=== PATIENT | female | born 1955 | race American Indian/Alaskan Native ===

== ENCOUNTER 2022-05-07 08:20 | Emergency (ER) | payer OTHER ==
[~2022-05-07] VITALS: Ht 167.6 cm; Wt 61.7 kg
[2022-05-07] MEDS ORDERED: DOXYCYCLINE HY100 MG PO (12:31)
== END 2022-05-07 12:52 | disposition home or self-care (01) ==
LOC: ED 08:20
DX: L02.811 Cutaneous abscess of head [any part, except face] (principal); E11.9 Type 2 diabetes mellitus without complications
CPT/HCPCS: 10060; 99282-25; A9270; J1170

== ENCOUNTER 2022-05-20 15:09 | Emergency (ER) | payer OTHER ==
[~2022-05-20] VITALS: Ht 167.6 cm; Wt 61.7 kg
[~2022-05-20 15:09] MED LIST: DOXYCYCLINE HY100 MG PO
--- OUTSIDE RECORDS SUMMARY | 2022-05-20 15:19 | XMS ---
PreManage Notification: LYSSA WATSON Security Gantry Rigger Events No recent Security Events currently on file CRITERIA MET - [facility] - 2 Visits in 30 Days CARE PROVIDERS There are no care providers on record at this time. Herminia has no Care Guidelines for this patient. Christie VISIT COUNT (12 MO[address] [facility] [facility] [address] [place], [place] [address] TOTAL 4 NOTE: Visits indicate total known visits. ED/C VISIT TRACKING (12 MO.) [facility] 15[facility] COMPLAINT: - FALL, L SHOULDER/ARM PAIN/INJURY 05/07/2022 08:22 [facility] [place] TYPE: Emergency COMPLAINT: - HEAD WOUND DIAGNOSES: - Type 2 diabetes mellitus without complications - Cutaneous abscess of head [any part, except face] [facility] DIAGNOSES: - chest pain - Cutaneous abscess of head [any part, except face] - Chest pain, unspecified [facility] DIAGNOSES: - Abscess - Blister - Cutaneous abscess of head [any part, except face] INPATIENT VISIT TRACKING (12 MO.) No inpatient visits to display in this time frame [email or web address]
[2022-05-20] MEDS ORDERED: PERCOCET 5-3251 EACH PO (17:09)
== END 2022-05-20 17:57 | disposition home or self-care (01) ==
LOC: ED 15:09
DX: S42.212A Unspecified displaced fracture of surgical neck of left humerus, initial encounter for closed fracture (principal); E11.9 Type 2 diabetes mellitus without complications; W00.0XXA Fall on same level due to ice and snow, initial encounter
CPT/HCPCS: 73030; 96372; 99283-25; A9270; J1170